=== PATIENT | female | born 1970 | race Caucasian/White ===

== ENCOUNTER 2022-10-13 04:01 | Day surgery (SDC) | payer OTHER ==
[2022-10-13 07:22] VITALS: RESP 18
[2022-10-13] MEDS ORDERED: LIDOCAINE HCL 1%, 10 MG/ML (10ML VIAL) MDV ONE (07:27)
[2022-10-13] MEDS ORDERED: BUPIVACAINE HCL/PF 0.5% (5MG/ML) 10 ML VIAL ONE (07:27)
[2022-10-13] MEDS ORDERED: DEXAMETHASONE SOD PHOSPHATE 4 MG/1 ML VIAL ONE (08:30)
[2022-10-13] MEDS ORDERED: LIDOCAINE HCL 2% (20ML MULTI-DOSE VIAL) ONE (09:01)
[2022-10-13] MEDS ORDERED: LIDOCAINE HCL 2% (50ML VIAL) INF ONE (09:19)
[2022-10-13] MEDS ORDERED: BUPIVACAINE HCL/PF 0.5% (5MG/ML) 10 ML VIAL IJ ONE (09:19)
[2022-10-13] MEDS ORDERED: MIDAZOLAM HCL 2 MG/2 ML SINGLE DOSE VIAL ONE (09:22)
[2022-10-13] MEDS ORDERED: PROPOFOL 20 ML ONE (09:22)
[2022-10-13] MEDS ORDERED: ceFAZolin 2 GRAM PREMIX BAG IVPB ONE (09:26)
[2022-10-13] MEDS ORDERED: ceFAZolin SODIUM 1 GM VIAL ONE ×2 (09:28)
[2022-10-13] MEDS ORDERED: DEXAMETHASONE SOD PHOSPHATE 4 MG/1 ML VIAL IM ONE (10:37)
[2022-10-13 12:05] VITALS: BP 126/80; PULSE 79; TEMP 98.7
[2022-10-13 13:00] VITALS: BMI 28.4
== END 2022-10-13 13:20 | disposition home or self-care (01) ==
LOC: JASU-SURG 04:01
PROVIDERS: ATTEND Podiatrist
PROC: 0QBN0Z2 Excision of Right Metatarsal, Sesamoid Bone(s) 1st Toe, Open Approach (ICD-10-PCS; 2022-10-13)
PROC: 0QSN04Z Reposition Right Metatarsal with Internal Fixation Device, Open Approach (ICD-10-PCS; principal; 2022-10-13 09:00)
DX: M21.611 Bunion of right foot (principal)
CPT/HCPCS: 73630-TC-RT-FY; 81025; 88305-TC; 88311-TC